=== PATIENT | male | born 1995 | race Caucasian/White ===

== ENCOUNTER 2024-12-13 15:16 | Emergency (ER) | payer MEDICAID ==
[~2024-12-13] VITALS: Ht 180.3 cm; Wt 82.8 kg
[2024-12-13 15:32] VITALS: BP 127/91; PULSE 92; RESP 18; TEMP 100.3; O2SAT 99
--- NOTE | 2024-12-13 15:33 | Physician Documentation ---
History of Present Illness ~ Stated Complaint: FLU SYMPTOMS Time Seen by MD: 15:47 OK to notify your PCP?: Yes Primary Medical Doctor: no pmd Source: patient Mode of Arrival: POV Exam Limitations: no limitations HPI This is a 29-year-old male who presents to the emergency department for symptoms of illness. He reports body aches including neck stiffness, subjective fever and sweating. He has had some sore throat and difficulty swallowing as well. He mentions that symptoms started a month ago when he was at a concert and then he has been getting different symptoms and worsening ever since. He reports that he has taken Abby-Taylor and ibuprofen with some relief. He also has a wound to his left index finger which he has had for the past 2 weeks. He also has a sore that his increased in size on his right hand 2 days ago as well as 1 that showed up a week ago on his right ribcage. He reports that he has not had sores in the past so this is a new thing for him. Medication Reconciliation Allergies: Coded Allergies: No Known Allergies (Unverified , 12/13/24) Scheduled Cephalexin*Monohydrate* (Keflex*), 1 CAP PO Q12H Sulfamethoxazole/Trimethoprim (Bactrim Ds Tablet), 1 TAB PO Q12H Past Medical History Past Medical History: No Pertinent History, *PSYCH* Past Surgical History: orthopedic surgeries Alcohol Use: Rarely Drug Use: marijuana Lives with: Other Lives In: Home Occupation: student Review of Systems All Other Systems at this time: Reviewed and Negative Physical Exam Vital Signs: RN Vital Signs have been reviewed: Yes Pulse Oximetry Reflects: adequate oxygenation Physical Exam General: Alert, no apparent distress. HEENT: PERRL, EOMI, no injection, moist mucous membranes. Posterior pharynx erythema, no exudates. Tonsils 1+. Sinuses nontender bilaterally. Neck: Full range of motion. Positive anterior cervical lymphadenopathy. Respiratory: Lungs clear, no respiratory distress. Chest: No accessory muscle use. Cardiovascular: Regular rate and rhythm, no murmurs. Extremities: Normal range of motion, no deformity. Neurologic: Oriented x4. Psychiatric: Normal mood and affect. Skin: Wound with maceration of the skin to left index finger nail bed, with purulent discharge. Small erythematous pustule to right hand on the palmar surface near the thumb. Small erythematous pustule to right ribcage. Progress Results/Orders Reviewed/noted all lab results: Yes Results/Orders Orders - AISHA VERA RADIOLOGY SPECIALIST Cephalexin Capsule (Keflex Capsule) (12/13/24 16:55) Sulfamethox/Trimetho. Ds Tab (Septra Ds (12/13/24 16:55) Vital Signs 12/13/24 15:32 Temp 100.3 Pulse 92 Resp 18 B/P (MAP) 127/91 Pulse Ox 99 O2 Flow Rate 0 Laboratory Tests Test 12/13/24 15:34 Influenza Type A Antigen Negative Influenza Type B Antigen Negative SARS-CoV-2 Antigen (Rapid) Negative Medical Decision Making Additional information obtaine: old records Findings For the viral illness, his physical exam is unremarkable. There is no sinus tenderness or signs of pneumonia. Vitals are stable. For his wounds, the index finger appears very infected so I have prescribed Bactrim and Keflex. I suspect this maybe a MRSA infection as he is having multiple wounds show up various locations on his body. First dose given here of antibiotics the rest sent to his pharmacy. He is given home instructions as well as follow up instructions Differential Dx:Considerations: Include: Influenza, Pharyngitis-Streptoccal, Pneumonia, Pnuemonitis, Sinusitis Differential Diagnosis Septic joint, paronychia, abscess. Departure Disposition: 01 HOME / SELF CARE / HOMELESS Impression: Primary Impression: Viral infection Additional Impression: Cellulitis and abscess of hand Condition: Stable Discharge Instructions: Viral Illness Additional Instructions: Keep wounds clean and dry. You can use warm compresses to help with pain and if they open allow them to drain and then keep them covered. For your viral symptoms, you are negative for COVID and flu testing today. As discussed you have a viral illness. Unfortunately there are no specific medications we can give you to make the illness and faster. Antibiotics do not work for viral illnesses. However, you can take acetaminophen or ibuprofen to help with fevers and pain. Stay well hydrated and rested. Return to the emergency department if your fevers and chills continue to worsen after 5 days, if you develop worsening cough with thick sputum, are unable to stay hydrated, or have any new or concerning concerning symptoms. Contact your primary care provider in the next 2-3 days for re-evaluation and to make sure your symptoms are improving. Referrals: NO PRIMARY CARE PROVIDER (PCP) Prescriptions Cephalexin*Monohydrate* (Keflex*) 500 Mg Capsule 1 CAP PO Q12H for 10 Days, #20 CAP Prov: AISHA VERA 12/13/24 Sulfamethoxazole/Trimethoprim (Bactrim Ds Tablet) 800 Mg-160 Mg Tablet 1 TAB PO Q12H for 10 Days, #20 TAB Prov: AISHA VERA 12/13/24 Education Educated: Patient Educated regarding: diagnosis, treatment, prognosis, need for follow up Additional Comment Medical Screen Exam This patient recieved a medical screening examination. After reviewing the individual's medical complaints with presenting symptoms and performing an appropriate physical examination, it was determined that no immediate life- threatening emergency medical condition is present. This individual is also not a women having contractions. Signature Scribe Signature: . Attestation: Scribed for Aisha Vera by Aisha Khan NP . 12/13/24 16:57 Parts of this note were created using [employer] voice recognition software program. While efforts were made to correct any mistakes made by this voice recognition software program, nonsensical phrases may remain in this note. In addition, there may be errors and syntax, grammar, content and spelling. ERICK DURAN NP Dec 13, 2024 15:33 AISHA VERA Dec 13, 2024 16:53
[2024-12-13 15:55] LABS: INFLUENZA TYPE A ANTIGEN RAPID NEGATIVE (Negative); INFLUENZA TYPE B ANTIGEN RAPID NEGATIVE (Negative)
[2024-12-13] MEDS ORDERED: SULF1TAB49 PO (16:52)
[2024-12-13] MEDS ORDERED: CEPH-585 PO (16:52)
[2024-12-13] MEDS: sulfamethoxazole/trimethoprim DS (800/160mg) tablet PO ONE (17:03)
== END 2024-12-13 17:04 | disposition home or self-care (01) ==
LOC: ER 15:17
DX: B34.9 Viral infection, unspecified (principal); L02.511 Cutaneous abscess of right hand; L03.113 Cellulitis of right upper limb; M43.6 Torticollis; F12.90 Cannabis use, unspecified, uncomplicated; Z98.890 Other specified postprocedural states; Z20.822 Contact with and (suspected) exposure to COVID-19
CPT/HCPCS: 36415; 87804; 87811; 99283